=== PATIENT | male | born 1950 | race Caucasian/White ===

== ENCOUNTER 2019-07-21 07:41 | Emergency (ER) | payer MEDICARE ==
[~2019-07-21] VITALS: Ht 185.4 cm; Wt 82.9 kg
--- NOTE | 2019-07-21 08:13 | NUR ---
Pt states chest pressure x3 days. States hx of A FIB. Pt states "I've been in a fib for the last three days, it kept me up all night." Pt states lf sided chest pressure at 6/10 currently. EKG completed, and pt placed on cardiac montior in room. IV stared, labs drawn. ERMD to see. Will follow orders.
[2019-07-21 08:21] LABS: BASOPHILS # (AUTO) 0.07 x10^3/uL (0-0.1); BASOPHILS % (AUTO) 1 % (0-1); EOSINOPHILS # (AUTO) 0.13 x10^3/uL (0-0.4); EOSINOPHILS % (AUTO) 2 % (1-7); LYMPHOCYTES % (AUTO) 24 % (22-44); MD NO; MEAN CORPUSCULAR HEMOGLOBIN 29.2 pg (27.5-34.5); MEAN CORPUSCULAR HGB CONC 32.9 g/dL (33.2-36.2); MEAN CORPUSCULAR VOLUME 88.6 fL (81-97); MEAN PLATELET VOLUME 8.7 fL (7.4-10.4); MONOCYTES # (AUTO) 0.62 x10^3/uL (0.2-0.8); MONOCYTES % (AUTO) 7 % (2-9); NEUTROPHILS # (AUTO) 5.73 x10^3/uL (1.8-6.8); NEUTROPHILS % (AUTO) 66 % (42-75); PLATELET COUNT 205 x10^3/uL (130-400); RED BLOOD COUNT 6.03 x10^6/uL (4.38-5.82); RED CELL DISTRIBUTION WIDTH 14.3 % (9.4-14.8)
[2019-07-21 08:33] LABS: ALBUMIN 4.1 g/dL (3.4-5.0); ANION GAP 7 mmol/L (5-15); CALCIUM 9.4 mg/dL (8.5-10.1); CHLORIDE 105 mmol/L (98-107); CREATININE 1.28 mg/dL (0.7-1.3)
[2019-07-21 08:37] LABS: TROPONIN I < 0.015 ng/mL (0.000-0.045)
[2019-07-21] MEDS ORDERED: ASPIRIN 81 MG TABLET CHEW ONE (08:40)
--- NOTE | 2019-07-21 08:48 | NUR ---
Pt medicated per orders. Pt resting in bed, states "feeling betting now." Pt remains on monitors, vss. Cont to monitor.
[2019-07-21] MEDS ORDERED: ASPIRIN 81 MG TABLET CHEW PO ONE (09:00)
[2019-07-21] MEDS ORDERED: PROPOFOL 10 MG/ML, 20ML ONE (09:11)
--- NOTE | 2019-07-21 10:10 | NUR ---
Pt's syncronized cardioversion proceedure completed (please see sedation proceedure paper charting for all proceedure notes). Pt curently resting in bed, alert and oriented to baseline, protecting own airway well. Pt remains in NSR on monitors. Daughter at bedside. Will cont to monitor.
--- NOTE | 2019-07-21 10:37 | NUR ---
Patient and caregiver given discharge instructions and they have confirmed that they understand the instructions. Patient ambulatory with steady gait. Pt left with d/c paperwork, referral paperwork, and all personal belongings.
[2019-07-21 10:38] VITALS: BP 122/86
--- NOTE | 2019-07-21 10:41 | NUR ---
PT left prior to EKG repeat.
== END 2019-07-21 10:44 | disposition home or self-care (01) ==
LOC: ED 08:20
DX: I48.0 Paroxysmal atrial fibrillation (principal); I10 Essential (primary) hypertension; I44.7 Left bundle-branch block, unspecified; R94.31 Abnormal electrocardiogram [ECG] [EKG]; Z95.811 Presence of heart assist device
CPT/HCPCS: 36415; 71045; 80048; 82040; 84484; 85025; 92960; 93005; 99285

== ENCOUNTER 2019-07-26 21:14 | Observation (INO) | payer MEDICARE ==
[~2019-07-26] VITALS: Ht 186.7 cm; Wt 84.0 kg
--- NOTE | 2019-07-26 22:00 | NUR ---
Pt here for chest pressure in center of chest that radiates to left arm. Pt reports he was cardioverted for afibb rvr. Pt reports that he does get SOB with exertion. Pressure resolves with rest but at times it does not. Pt connected to monitors and call light in reach. Awaiting further orders.
[2019-07-26 22:14] LABS: ALBUMIN 3.9 g/dL (3.4-5.0); ANION GAP 6 mmol/L (5-15); CALCIUM 9.6 mg/dL (8.5-10.1); CHLORIDE 103 mmol/L (98-107)
[2019-07-26 22:15] LABS: BASOPHILS # (AUTO) 0.02 x10^3/uL (0-0.1); BASOPHILS % (AUTO) 0 % (0-1); EOSINOPHILS # (AUTO) 0.18 x10^3/uL (0-0.4); EOSINOPHILS % (AUTO) 3 % (1-7); LYMPHOCYTES # (AUTO) 2.31 x10^3/uL (1-3.4); LYMPHOCYTES % (AUTO) 34 % (22-44); MD NO; MEAN CORPUSCULAR HEMOGLOBIN 28.7 pg (27.5-34.5); MEAN CORPUSCULAR HGB CONC 32.9 g/dL (33.2-36.2); MEAN CORPUSCULAR VOLUME 87.3 fL (81-97); MEAN PLATELET VOLUME 8.9 fL (7.4-10.4); MONOCYTES # (AUTO) 0.61 x10^3/uL (0.2-0.8); MONOCYTES % (AUTO) 9 % (2-9); NEUTROPHILS # (AUTO) 3.64 x10^3/uL (1.8-6.8); NEUTROPHILS % (AUTO) 54 % (42-75); PLATELET COUNT 185 x10^3/uL (130-400); RED BLOOD COUNT 5.27 x10^6/uL (4.38-5.82); RED CELL DISTRIBUTION WIDTH 14.3 % (9.4-14.8)
[2019-07-26 22:19] LABS: CREATININE 1.29 mg/dL (0.7-1.3); TROPONIN I < 0.015 ng/mL (0.000-0.045)
--- NOTE | 2019-07-26 23:13 | NUR ---
Report to Renate SILVERMAN
[2019-07-26 23:29] VITALS: BP 166/97
[2019-07-26] MEDS ORDERED: ACETAMINOPHEN 325 MG TABLET PO PRN (23:30)
[2019-07-26] MEDS ORDERED: NITROGLYCERIN 0.4 MG BOTTLE (25 TABS) SL PRN (23:30)
[2019-07-26] MEDS ORDERED: ENOXAPARIN 40 MG/0.4 ML SQ SCH (23:30)
[2019-07-26] MEDS ORDERED: ONDANSETRON 2MG/ML, 2ML IVPush PRN (23:30)
[2019-07-26] MEDS ORDERED: morphine SULFATE 10 MG/ML, 1ML IVPush PRN (23:30)
[2019-07-27 02:43] VITALS: BP 134/82
[2019-07-27 05:01] LABS: BASOPHILS # (AUTO) 0.03 x10^3/uL (0-0.1); BASOPHILS % (AUTO) 0 % (0-1); EOSINOPHILS # (AUTO) 0.05 x10^3/uL (0-0.4); EOSINOPHILS % (AUTO) 1 % (1-7); LYMPHOCYTES # (AUTO) 1.78 x10^3/uL (1-3.4); LYMPHOCYTES % (AUTO) 28 % (22-44); MD NO; MEAN CORPUSCULAR HEMOGLOBIN 28.7 pg (27.5-34.5); MEAN CORPUSCULAR HGB CONC 32.6 g/dL (33.2-36.2); MEAN CORPUSCULAR VOLUME 87.8 fL (81-97); MEAN PLATELET VOLUME 9.1 fL (7.4-10.4); MONOCYTES # (AUTO) 0.46 x10^3/uL (0.2-0.8); MONOCYTES % (AUTO) 7 % (2-9); NEUTROPHILS # (AUTO) 4.06 x10^3/uL (1.8-6.8); NEUTROPHILS % (AUTO) 64 % (42-75); PLATELET COUNT 191 x10^3/uL (130-400); RED BLOOD COUNT 5.21 x10^6/uL (4.38-5.82); RED CELL DISTRIBUTION WIDTH 14.3 % (9.4-14.8)
[2019-07-27 05:07] LABS: ANION GAP 4 mmol/L (5-15); CHLORIDE 108 mmol/L (98-107); CREATININE 1.09 mg/dL (0.7-1.3)
[2019-07-27 05:11] LABS: TROPONIN I < 0.015 ng/mL (0.000-0.045)
[2019-07-27] MEDS ORDERED: ASPIRIN 325 MG TABLET EC PO SCH (06:00)
[2019-07-27] MEDS ORDERED: METO50TA6 PO (06:15)
[2019-07-27] MEDS ORDERED: AMLO5TAB10 PO (06:15)
[2019-07-27] MEDS ORDERED: ASPI-496 PO (06:15)
[2019-07-27] MEDS ORDERED: HYDROCHLOROTH12.5 MG PO (06:15)
[2019-07-27] MEDS ORDERED: NITR (06:15)
[2019-07-27] MEDS ORDERED: [UNRECOGNIZED DRUG - OTHER] (06:17)
[2019-07-27 08:24] VITALS: BP 151/85
[2019-07-27] MEDS ORDERED: REGADENOSON 0.4 MG/5 ML SYRINGE ONE ×2 (08:43→08:53)
[2019-07-27] MEDS ORDERED: METOPROLOL TARTRATE 50 MG TAB PO SCH (09:00)
[2019-07-27] MEDS ORDERED: AMLODIPINE 5 MG TABLET PO SCH (09:00)
[2019-07-27] MEDS ORDERED: HYDROCHLOROTHIAZIDE 12.5 MG CAPSULE PO SCH (09:00)
[2019-07-27 11:43] LABS: TROPONIN I < 0.015 ng/mL (0.000-0.045)
[2019-07-27 13:16] VITALS: BP 148/87
== END 2019-07-27 17:35 | disposition home or self-care (01) ==
LOC: ED 21:42 → INTOOBSV 22:34 → EDIP 22:34 → 5SO 23:35
PROVIDERS: ADMIT Family Medicine; ATTEND Hospitalist
DX: R07.89 Other chest pain (principal); I48.91 Unspecified atrial fibrillation; I44.7 Left bundle-branch block, unspecified; I10 Essential (primary) hypertension; N17.9 Acute kidney failure, unspecified; Z79.82 Long term (current) use of aspirin; Z79.899 Other long term (current) drug therapy
CPT/HCPCS: 36415; 71046; 78452; 80048; 82040; 84484; 85025; 93005; 93017; 96372; 99285; A9502; G0378; J1650; J2785

== ENCOUNTER → 2020-08-10 | Outpatient (CLI) | payer MEDICARE ==
[~2020-08-10] MED LIST: AMLO-210 PO; ASPI-496 PO; HYDROCHLOROTH12.5 MG PO; METO50TA6 PO; NITR; [UNRECOGNIZED DRUG - OTHER]
== END | disposition home or self-care (01) ==
LOC: CFH 09:40
PROVIDERS: ATTEND Internal Medicine Cardiovascular Disease
DX: I70.0 Atherosclerosis of aorta (principal); I10 Essential (primary) hypertension; I42.9 Cardiomyopathy, unspecified; R94.31 Abnormal electrocardiogram [ECG] [EKG]; K44.9 Diaphragmatic hernia without obstruction or gangrene
CPT/HCPCS: 75571

== ENCOUNTER → 2020-08-31 | Outpatient (CLI) | payer MEDICARE | END | disposition home or self-care (01) | LOC: CFH 13:17 | PROVIDERS: ATTEND Internal Medicine Cardiovascular Disease | DX: I08.3 Combined rheumatic disorders of mitral, aortic and tricuspid valves (principal); R94.31 Abnormal electrocardiogram [ECG] [EKG]; I10 Essential (primary) hypertension; I42.9 Cardiomyopathy, unspecified | CPT/HCPCS: 93306; 93356 ==